=== PATIENT | female | born 1950 | race Caucasian/White ===

== ENCOUNTER → 2016-07-04 | Outpatient (CLI) | payer OTHER ==
--- NOTE | 2016-07-04 17:39 | DX ---
DEXA Bone Mineral Densitometry Indication: 65-year-old postmenopausal woman with personal history of low bone mineral density. Foll ow up. Comparison: December 02, 2014 Technique: Bone Mineral Densitometry (BMD) by Dual Energy X-Ray Absorptiometry (DEXA) was performed utilizing the [employer] scanner. The lumbar spine was evaluated in the AP projection. The bilate ral hips and right forearm were evaluated in the AP projection. Vertebral fracture assessment was als o performed. Findings: AP Lumbar Spine: The L1, L2, L3 and L4 vertebral bodies were evaluated. BMD: 0.988 gm/cm2 T-score: -1.7 SD Z-score: -0.1 SD Increased density AP Left Hip: Neck BMD: 0.912 gm/cm2 T-score: -0.9 SD Z-score: 0.6 SD No change AP Right Hip: Neck BMD: 0.888 gm/cm2 T-score: -1.1 SD Z-score: 0.4 SD No change AP right Forearm, 06/07: BMD: 0.684 gm/cm2 T-score: -2.2 SD Z-score: -0.8 SD Decrease in density Vertebral Fracture Assessment: No significant fracture deformity. Degenerative disk and facet arthro ashley artificially increases the BMD measurement in the lumbar spine. Conclusion: Decreased density of the right forearm since 2014. The overall density remains in the low (osteopenic) range. The ten year risk for any major osteoporotic fracture is 13.4% and for a hip fra cture is 1.1%. Any bone loss in this patient is probably related to aging or estrogen deficiency. Recommendations: To prevent osteoporosis and to promote bone density, consider the following recomme ndations: 1. Pursue a regular regimen of weightbearing and muscle-strengthening exercises in order to reduce t he risk of falls and fracture (as tolerated by the patient's general medical condition). 2. Ensure that total daily dietary calcium intake is maximized. 3. Check serum hydroxy vitamin D3 (normal >30ng/ml). 4. Ensure daily intake of vitamin D is 800 international units. 5. Consider follow up DEXA scan in two years to assess the rate of bone loss in this patient. 6. Consider excluding common secondary causes of bone loss. Laboratory evaluation might include CBC , TSH, calcium, phosphorous, albumin, creatinine, alkaline phosphatase, PTH, serum, electrophoresis ( SPEP or UPEP), antitissue transglutaminase antibody levels (celiac disease), and hydroxy vitamin D3, as well as a 24-hour urine calcium.
== END ==
LOC: FIMAGING 11:29
PROVIDERS: ATTEND Orthopaedic Surgery
DX: M85.80 Other specified disorders of bone density and structure, unspecified site (principal); Z78.0 Asymptomatic menopausal state

== ENCOUNTER → 2017-04-10 | Outpatient (CLI) | payer OTHER | LOC: FIMAGING 16:42 | PROVIDERS: ATTEND Internal Medicine | DX: R22.41 Localized swelling, mass and lump, right lower limb (principal) ==

== ENCOUNTER → 2017-10-04 | Outpatient (CLI) | payer OTHER | LOC: BMCIMAGING 16:58 | PROVIDERS: ATTEND Family Medicine | DX: M79.671 Pain in right foot (principal) ==

== ENCOUNTER → 2017-10-11 | Outpatient (CLI) | payer OTHER | LOC: FIMAGING 14:00 | PROVIDERS: ATTEND Internal Medicine | DX: M25.552 Pain in left hip (principal); W19.XXXD Unspecified fall, subsequent encounter ==

== ENCOUNTER → 2017-11-02 | Outpatient (CLI) | payer OTHER | LOC: BMCIMAGING 08:23 | PROVIDERS: ATTEND Internal Medicine | DX: M79.662 Pain in left lower leg (principal) ==

== ENCOUNTER → 2017-12-27 | Outpatient (CLI) | payer OTHER | LOC: FIMAGING 17:10 | DX: R22.32 Localized swelling, mass and lump, left upper limb (principal) ==

== ENCOUNTER 2018-02-06 18:21 | Emergency (ER) | payer OTHER ==
--- NOTE | 2018-02-06 19:35 | EDPHY ---
H & P Time Seen by Provider: 02/06/18 18:38 HPI/ROS: This patient complains of 48 hr of right leg swelling and mild pain 3 to 5/10 intensity worsened slightly with walking and is prominence the posterior calf. She also has a subacute abrasion to the pretibial region of the same leg from scratching with sharp fingernails in her sleep about a week ago. She also has mild chronic knee pain is unchanged from degenerative knee. No recent knee injuries or change in her mild chronic pain. Social history is notable for a long plane flight from [place] last night. ROS: Constitutional: No fevers. Integumentary: No other skin wounds or complaints Pulmonary: No shortness of breath or chest pain. Cardiovascular: No lightheadedness heart palpitations or chest pain. 5 point ROS is otherwise negative. 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 Smoking Status: Former smoker Physical Exam: Physical Exam Vital signs are normal. General: No acute distress Lungs: No respiratory distress. Cardiac: Brisk capillary refill is intact throughout. Pulses are 2+ and symmetric in the affected extremity. Homans is negative on the affected leg. Skin: No rash or pallor. There is a 1.5 x 1 cm scab to the right pretibial region with minimal erythema immediate surrounding scan in diameter less than 3 cm with no significant warmth to touch fluctuance. Extremities: Atraumatic normal except for right lower extremity-mild swelling with mild posterior calf tenderness. Homans is negative. No significant knee tenderness or effusion is appreciated. No significant popliteal swelling or tenderness is noted. Neuro: Alert and oriented x3 with no sensorimotor deficits. Initial differential diagnosis: Dependent edema, mild edema from subacute wounds, DVT, Nguyen cyst, calf strain Constitutional: Initial Vital Signs Temperature (C) 37.0 C 02/06/18 18:24 Heart Rate 88 02/06/18 18:24 Respiratory Rate 14 02/06/18 18:24 Blood Pressure 137/88 H 02/06/18 18:24 O2 Sat (%) 94 02/06/18 18:24 O2 Delivery Mode Room Air Allergies/Adverse Reactions: Heparin Analogues [Heparin Agents] Allergy (Severe, Verified 02/06/18 18:36) Other-Enter Comments vancomycin Allergy (Severe, Verified 02/06/18 18:36) acute renal failure gluten [Gluten] Allergy (Intermediate, Verified 02/06/18 18:36) Other-Enter Comments CERTAIN METAL Allergy (Intermediate, Uncoded 02/06/18 18:36) Other-Enter Comments Home Medications: Medication Instructions Recorded Budesonide/Formoterol 160/4.5 1 puffs IH DAILY 12/06/13 [Symbicort 160-4.5 Mcg Inh (*)] Herbals/Supplements -Info Only 1 ea PO AD 12/06/13 Vitamin B Complex [B Complex] 1 each PO DAILY 12/06/13 Magnesium Citrate 02/06/18 Multivitamins 02/06/18 Symbicort 80-4.5 Mcg Inhaler 02/06/18 Vitamin D3 02/06/18 MDM/Departure - MDM Imaging Results: Imaging Impressions Extremity Venous Study 02/06/18 18:46 Impression: 1. No evidence of deep vein thrombosis in the right lower extremity. 2. Suspect Nguyen's cyst. Results called and discussed with HECTOR SOLIZ M.D. on 02/06/2018 at 19:24. Imaging: Discussed imaging studies w/ call specialist Radiologist ED Course/Re-evaluation: The patient declined analgesics. Wound care was performed to the subcu wound by our tech with bacitracin and "breathable" dressing applied. I discussed the patient's Doppler ultrasound results-negative for DVT, very small Nguyen cyst. Discussion: Patient presents with leg swelling and pain is attributable to dependent edema, subacute leg wound and mild Nguyen cyst. We ruled out DVT. She will follow up with her stock broker if the wound stools inhaling over the next week with appropriate wound care. - Depart Disposition: Home, Routine, Self-Care Clinical Impression: Dependent edema Nguyen's cyst of knee Qualifiers: Laterality: right Qualified Code(s): M71.21 - Synovial cyst of popliteal space [Nguyen], right knee Leg wound, right Qualifiers: Encounter type: initial encounter Qualified Code(s): S81.801A - Unspecified open wound, right lower leg, initial encounter Condition: Good Instructions: Edema (ED), Acute Wounds (ED) Additional Instructions: Diagnosis: 1. Dependent edema 2. Small Nguyen cyst of knee 3. Subacute leg wound Plan: Leave the breathe able dressing in place for the next 5 days or so then remove in clean daily with warm soapy water Prop up your leg whenever possible and gentle massage to the leg Ibuprofen Tylenol for discomfort if needed Follow up with stock broker if the leg wound still isn't healing over the next week or so. Return for any significant worsening despite the treatment plan. Referrals: Sary Cooper MD [Primary Care Provider] - As per Instructions KEELEY LANDAVERDE [Medical Doctor] - As per Instructions
[2018-02-06 19:54] VITALS: BP 130/84
== END 2018-02-06 19:55 | disposition home or self-care (01) ==
LOC: CED 18:21
DX: M71.21 Synovial cyst of popliteal space [Baker], right knee (principal); S80.811A Abrasion, right lower leg, initial encounter; X58.XXXA Exposure to other specified factors, initial encounter; M17.11 Unilateral primary osteoarthritis, right knee; Z87.891 Personal history of nicotine dependence
CPT/HCPCS: 93971-PO

== ENCOUNTER → 2018-03-19 | Outpatient (CLI) | payer OTHER | LOC: BMCIMAGING 10:52 | PROVIDERS: ATTEND Family Medicine | DX: M40.202 Unspecified kyphosis, cervical region (principal); M47.892 Other spondylosis, cervical region ==

== ENCOUNTER → 2018-06-23 | Outpatient (CLI) | payer OTHER | LOC: BMCIMAGING 10:50 | PROVIDERS: ATTEND Family Medicine | DX: J98.4 Other disorders of lung (principal) ==

== ENCOUNTER → 2018-09-06 | Outpatient (CLI) | payer OTHER | LOC: BMCIMAGING 09:09 | PROVIDERS: ATTEND Internal Medicine | DX: R05 Cough (principal) ==

== ENCOUNTER → 2018-10-25 | Outpatient (CLI) | payer OTHER | LOC: FIMAGING 17:13 | PROVIDERS: ATTEND Internal Medicine | DX: M79.652 Pain in left thigh (principal); I80.02 Phlebitis and thrombophlebitis of superficial vessels of left lower extremity ==